=== PATIENT | female | born 1980 | race Caucasian/White ===

== ENCOUNTER 2017-11-07 16:03 | Emergency (ER) | payer OTHER, MEDICAID ==
[~2017-11-07] VITALS: Ht 154.9 cm; Wt 68.0 kg
[~2017-11-07 16:03] MED LIST: BIRTH CONTROL PILL; CIPRO500 M1 PO; FLAGYL500 MG PO; FLOMAX PO; IBUPROFEN 800800 MG PO; MOBIC15 MG PO; NORCO 5-325 TA1 EACH PO; PERCOCET 5-3251 EACH PO; ZOFRAN4 MG PO
[2017-11-07] MEDS ORDERED: XYZAL5 MG PO (16:24)
[2017-11-07] MEDS ORDERED: NAPROSYN500 MG PO (18:03)
[2017-11-07] MEDS ORDERED: CORTISPORIN OTI10 M2 OTIC (18:03)
[2017-11-07] MEDS ORDERED: PERCOCET PO (18:03)
[2017-11-07 18:30] VITALS: BP 129/92
== END 2017-11-07 18:31 | disposition home or self-care (01) ==
LOC: M.ERS 16:03
DX: H61.21 Impacted cerumen, right ear (principal); Z88.1 Allergy status to other antibiotic agents; Z88.2 Allergy status to sulfonamides